=== PATIENT | male | born 1970 | race Caucasian/White ===

== ENCOUNTER → 2020-07-27 00:03 | Outpatient (CLI) | payer BC, SELFPAY ==
[2020-07-27 18:21] LABS: SARS-CoV-2 RNA PCR Negative
== END ==
PROVIDERS: PCP Family Medicine Sports Medicine; Visit Provider Internal Medicine Critical Care Medicine
DX: Z01.812 Encounter for preprocedural laboratory examination (principal); Z20.822 Contact with and (suspected) exposure to COVID-19
CPT/HCPCS: C9803; U0003; U0005

== ENCOUNTER 2020-07-29 11:13 | Outpatient (CLI) | payer BC, SELFPAY ==
--- NOTE | 2020-08-10 19:58 | WPDSLEEPSTUD ---
Sleep Study Ordering Provider: Zac Guan MD Interpreting Physician: Lynda Toth MD Sleep Study Type: CPAP Titration Height: 1.75 m Weight: 117.934 kg Body Mass Index: 38.4 Neck Circumference (inches): 19 Brooten: 10 Reason for Sleep Study Excessive daytime sleepiness Known SANJU since about 2004; 11/12/2011 Split night study at [facility] in [place], [place] with BMI 36.9, wt 250 lb showed baseline portion with severe SANJU, AHI 108, 34 arousals per hour, minimum saturation 72% and sleep efficiency 73%. CPAP titrated to 10 cm which eliminated all events with REM rebound. Sleep History Ludmila Tracy is a 50 year old man with a history of SANJU who has been on CPAP 10 cm water pressure at home. He was diagnosed in 2004, used CPAP and had a repeat sleep study in 2011 with severe sleep apnea, AHI 108, had a new device with a nasal mask. He has been using the same machine at 10 cm since 2011. The motor has exceeded its life time limit and the alarms are making noises at night. He uses it every night. He has a good clinical response, feels more rested and sleeps better using it every night. He has gained 10 lb since August. He occasionally has snoring. There is no download from his device because it is so old. There is a positive family history with his mother also having sleep apnea. He does not awaken from sleep feeling short of breath when he uses CPAP. He does not awaken at night with heartburn, belching or coughing. He occasionally snores. He rarely snores loudly enough that others complain about it. He occasionally has trouble sleep with a cold. He does not wake up gasping for breath at night, does not have breathing problems at night observed by others and does not sweat excessively at night. He does not notice his heart pounding or beating irregularly at night. He occasionally falls asleep during the day, rarely involuntarily and never while driving. He does not have loss of muscle tone with strong emotion. He does not have daytime difficulties due to his excessive sleepiness. He does not feel paralyzed on waking or falling asleep. He rarely has vivid dreamlike scenes upon awakening or falling asleep. He never feels afraid to go to sleep. He rarely has nightmares. He occasionally remembers his dreams, occasionally has racing thoughts, occasionally has feelings of sadness, depression, and anxiety. He rarely has muscular tension. He does not notice parts of his body jerking. He does not kick at night. He does not have crawling or aching feelings in his legs and does not have any kind of leg pain at night. He rarely has morning jaw pain. He occasionally grinds his teeth during sleep. He occasionally is bothered by pain during the day. He rarely is awakened by pain at night. He does not wake up feeling stiff in the morning. He rarely wakes up with sore or achy muscles. He rarely wakes up with pain in the neck and spine. He has fatigue. He reports gaining 10-15 lb in the last year. Normal bedtime is between 930 and 10:00 p.m. falling asleep within 20-30 minutes typically waking 1 or 2 times at night to go urinate or just reposition himself. It takes about 5-10 minutes for him to fall asleep again. He wakes the morning at 4:30 a.m.. On the weekends, he may stay awake later, going to bed between 10:00 p.m. and 11:00 p.m. and waking at 7:00 a.m. if he is not working. He is a grocery/produce worker. He does not generally take naps in the afternoon or evening. A short nap is not refreshing. Most of the time he feels good in the morning. He feels better in the morning compared other times a day. Habits: Never smoked tobacco. Caffeine: 2 sodas or glasses of tea per day. No alcohol or recreational drugs. FOR[facility]LY [facility] Past Medical History Medical History (Updated 08/10/20 @ 20:20 by Lynda Toth MD) Arthritis Corneal abnormality history of cornea surgery Diabetes mellitus type 2 in obese History of kidney sto
[2020-08-10 20:29] VITALS: BMI 38.4
== END 2020-07-29 11:14 | disposition home or self-care (01) ==
LOC: ANHCSM 11:14
PROVIDERS: PCP Family Medicine Sports Medicine; Visit Provider Internal Medicine Pulmonary Disease
DX: G47.33 Obstructive sleep apnea (adult) (pediatric) (principal); E11.9 Type 2 diabetes mellitus without complications; E66.9 Obesity, unspecified; Z68.38 Body mass index [BMI] 38.0-38.9, adult
CPT/HCPCS: 95811

== ENCOUNTER 2023-11-28 07:24 | Emergency (ER) | payer BC, SELFPAY ==
[2023-11-28] VITALS (29 sets, daily range): BP systolic 86–108; BP diastolic 56–76; PULSE 72–96; RESP 12–20; TEMP 35.8–36.2; O2SAT 95–100
--- NOTE | ~2023-11-28 | XR_ITS ---
Portable chest x-ray Comparison: 07/23/2008 Clinical History: Dizziness Findings: Lungs are clear, without focal consolidation or pleural effusion. Cardiomediastinal silho uette is stable. Bones and soft tissues are unremarkable. Impression: Normal chest. Reviewed, dictated and finalized at location . Impression: Normal chest.
--- NOTE | 2023-11-28 07:27 | ECG_ITS ---
Test Date: 2023-11-28 07:37:53 Measurements Intervals [place] Rate: 92 P: 56 LA: 156 QRS: 48 QRSD: 96 T: 14 QT: 346 QTc: 428 Interpretive Statements SINUS RHYTHM NORMAL ELECTROCARDIOGRAM No previous ECG available for comparison Electronically Signed On 11-28-2023 13:33:03 CDT by Zac Casey M.D.
[2023-11-28] MEDS: SODIUM CHLORIDE 0.9% IV 1,000 ML 999 ML IV CONT ×2 (07:44→08:18)
[2023-11-28 07:47] LABS: Basophils Absolute Auto 0.06 K/mm3 (0.00-0.10); Basophils Percent Auto 0.4 % (0.0-1.0); Eosinophils Absolute Auto 0.21 K/mm3 (0.02-0.50); Eosinophils Percent Auto 1.5 % (1.0-6.0); Hematocrit 51.7 % (40.0-54.0); Hemoglobin 18.1 g/dL (14.0-18.0); Immature Granulocyte Absolute 0.04 K/mm3 (0.00-0.00); Immature Granulocyte Percent A 0.3 % (0.0-0.0); Lymphocytes Absolute Auto 3.33 K/mm3 (1.10-4.50); Lymphocytes Percent Auto 24.2 % (18.0-42.0); Mean Corpuscular Hemoglobin 32.5 pg (27.0-31.0); Mean Corpuscular Volume 92.8 fL (78.0-102.0); Mean Platelet Volume 11.3 fl (8.7-11.0); Monocytes Absolute Auto 1.05 K/mm3 (0.10-0.90); Monocytes Percent Auto 7.6 % (2.0-11.0); Neutrophils Absolute Auto 9.09 K/mm3 (1.70-7.20); Platelet Count Result 226 K/mm3 (150-420); Red Blood Count 5.57 M/mm3 (4.70-6.10); Red Cell Distribution Width 12.3 % (11.6-14.4); White Blood Count 13.8 K/mm3 (4.8-10.8)
[2023-11-28 08:05] LABS: Alanine Aminotransferase 26 U/L (16-63); Albumin Level 4.7 g/dL (3.4-5.0); Alkaline Phosphatase 92 U/L (46-116); Anion Gap 15 mmol/L (4-12); Aspartate Amino Transferase 23 U/L (15-37); Bilirubin,Total 1.5 mg/dL (0.00-1.00); Blood Urea Nitrogen 58 mg/dL (7-18); Calcium 11.3 mg/dL (8.5-10.1); Carbon Dioxide 25 mmol/L (21-32); Chloride 95 mmol/L (98-108); Creatine Kinase 402 U/L (39-308); Estimated Glomerular Filt Rate 9; Glucose 131 mg/dL (70-99); Osmolality Calculated 298 mOsm/kg (285-295); Potassium 4.6 mmol/L (3.5-5.1); Sodium 135 mmol/L (136-145); Total Protein 8.8 g/dL (6.4-8.2)
[2023-11-28 08:17] LABS: Lactic Acid Reflex 1.1 mmol/L (0.4-2.0)
--- NOTE | 2023-11-28 08:18 | ED.GENADULT ---
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 States that he has also had decrease in appetite. Patient has a history of diabetes and hyperlipidemia. Patient also states that he has been having a cough for the last couple of months and saw his primary and was being treated for allergies. Onset (ago): day(s) Radiation: non-radiation Severity: moderate Related Data Home Medications Medication Instructions Recorded Confirmed atorvastatin 10 mg tablet 10 mg PO DAILY 11/10/21 11/28/23 lisinopril 20 mg tablet 20 mg PO DAILY 11/28/23 11/28/23 semaglutide 1 mg/dose (4 mg/3 mL) 1 mg subcut WEEKLY 11/28/23 11/28/23 subcutaneous pen injector (Ozempic) Allergies Allergy/AdvReac Type Severity Reaction Status Date / Time Penicillins Allergy Intermediate HIVES Verified 11/10/21 14:53 Review of Systems Review of Systems: All systems reviewed & are unremarkable except as noted in HPI and below PMFSH Past Medical History Medical History Arthritis Corneal abnormality history of cornea surgery Diabetes mellitus type 2 in obese History of kidney stones Obstructive sleep apnea Surgical History Surgical History History of hernia repair Social History Social History Smoking status: Never smoker Exam Const: Nutritional Appearance: well nourished Orientation/consciousness: patient oriented x3 Limitations: no limitations HENMT: Head: normal to inspection Eyes: Conjunctivae: conjunctivae normal Pupils: Equal, round and reactive pupils present Neck: Neck: normal visual inspection and no lymphadenopathy Chest: Chest palpation & inspection: normal inspection of the chest Resp: Effort & Inspection: normal respiratory effort Auscultation: clear to auscultation bilaterally Cardio: Rate: regular rate Rhythm: regular rhythm GI: GI Palp: Yes Soft to palpation Auscultation: normal bowel sounds Back/Spine/Pelvis: Back: no CVA tenderness Skin: General skin exam: normal color Rashes: no rashes Neuro: General: patient oriented x3 and moves all extremities Extrem: General: normal to inspection and no clubbing, cyanosis or edema Course Course Emergency Course: Patient with elevated creatinine of over 6 with no history of kidney disease, does have history of diabetes and has been on metformin and Ozempic. Vitals been stable blood pressure 106 systolic, has received 2L bolus of normal saline. Hospitalist at [facility] accepted patient for transfer. Vital Signs Vital signs: Vital Signs Temperature 35.8 C L 11/28/23 07:24 Pulse Rate 91 11/28/23 07:24 Respiratory Rate 20 11/28/23 07:24 Blood Pressure 98/76 L 11/28/23 07:24 Pulse Oximetry 97 11/28/23 07:24 Oxygen Delivery Room Air 11/28/23 07:24 Temperature 35.8 C L 11/28/23 07:24 Pulse Rate 91 11/28/23 07:24 Respiratory Rate 20 11/28/23 07:24 Blood Pressure 98/76 L 11/28/23 07:24 Pulse Oximetry 97 11/28/23 07:24 Oxygen Delivery Room Air 11/28/23 07:24 Medical Decision Making Vital Signs Vital Signs: Vital Signs Temperature 35.8 C L 11/28/23 07:24 Pulse Rate 91 11/28/23 07:24 Respiratory Rate 20 11/28/23
[2023-11-28 08:20] LABS: SARS-CoV-2 RNA PCR Negative (Negative)
[2023-11-28 08:22] LABS: Influenza A QL RT-PCR Negative (Negative); Influenza B QL RT-PCR Negative (Negative); RSV RNA, RT-PCR Negative (Negative)
== END 2023-11-28 10:42 | disposition short-term general hospital (02) ==
PROVIDERS: Emergency Provider Emergency Medicine; PCP Family Medicine Sports Medicine
DX: N17.9 Acute kidney failure, unspecified (principal); E11.9 Type 2 diabetes mellitus without complications; Z79.899 Other long term (current) drug therapy; Z20.822 Contact with and (suspected) exposure to COVID-19
CPT/HCPCS: 36415; 71045; 80053; 82550; 83605; 85025; 87637; 93005; 96360; 96361; 99285; J7030